=== PATIENT | female | born 1990 | race Caucasian/White ===

== ENCOUNTER 2018-07-28 07:48 | Emergency (ER) | payer BC, OTHER ==
[~2018-07-28] VITALS: Ht 177.8 cm; Wt 136.1 kg
[~2018-07-28 07:48] MED LIST: EMETROL ORAL S118 ML; METFORMIN HCL500 MG PO; NOHOMEMEDICATIONS; ZOFRAN ODT4 MG PO
[2018-07-28 08:08] LABS: URINE BILIRUBIN NEGATIVE (Negative); URINE BLOOD NEGATIVE (Negative); URINE CLARITY CLEAR; URINE COLOR YELLOW; URINE GLUCOSE-RANDOM* NEGATIVE (Negative); URINE KETONES NEGATIVE (Negative); URINE LEUKOCYTES-REFLEX NEGATIVE (Negative); URINE NITRITE-REFLEX NEGATIVE (Negative); URINE UROBILINOGEN 0.2 E.U./dl (0.2-1.0)
[2018-07-28] MEDS ORDERED: ZOLOFT50 MG PO (08:09)
[2018-07-28 08:15] LABS: URINE PROTEIN (DIPSTICK) TRACE (Negative)
[2018-07-28 08:27] LABS: HEMATOCRIT 42.6 % (37.0-47.0); HEMOGLOBIN 14.7 gm/dL (12.0-15.0); MCH 32.1 pg (26.0-34.0); MCHC 34.6 g/dL (28.0-37.0); MCV 92.9 fL (80.0-100.0); PLATELET COUNT 291 thou/uL (150-400); RBC 4.59 mil/uL (4.20-5.00); RDW 12.4 % (10.5-14.5); WBC 7.6 thou/uL (4.0-11.0)
[2018-07-28 08:31] LABS: CREATININE 0.9 mg/dL (0.6-1.0); POTASSIUM 3.4 mmol/L (3.5-5.1)
[2018-07-28 08:37] LABS: ALBUMIN 3.7 g/dL (3.4-5.0); TOTAL BILIRUBIN 0.3 mg/dL (<0.1-1.0); TOTAL PROTEIN 7.4 g/dL (6.4-8.2)
[2018-07-28 09:38] LABS: ABSOLUTE NEUTROPHILS 5.2 thou/uL (1.4-8.2); ATYPICAL LYMPHS 5 %; PLATELET ESTIMATE NORMAL
[2018-07-28] MEDS ORDERED: LEVSIN0.125 MG PO (09:42)
[2018-07-28] MEDS ORDERED: PRILOSEC 20 MG20 MG PO (09:42)
[2018-07-28] MEDS ORDERED: ZOFRAN ODT8 MG PO (09:42)
[2018-07-28 10:10] VITALS: BP 166/91
== END 2018-07-28 10:12 | disposition home or self-care (01) ==
LOC: ER 07:48
PROVIDERS: Emergency Medicine
DX: R11.2 Nausea with vomiting, unspecified (principal); R10.31 Right lower quadrant pain; R10.11 Right upper quadrant pain; R10.13 Epigastric pain; R42 Dizziness and giddiness; E28.2 Polycystic ovarian syndrome; Z87.891 Personal history of nicotine dependence